=== PATIENT | female | born 1980 | race African-American/Black ===

== ENCOUNTER 2017-05-07 17:46 | Emergency (ER) | payer OTHER ==
[~2017-05-07] VITALS: Ht 170.2 cm; Wt 108.5 kg
[2017-05-07] MEDS ORDERED: CYCLOBENZAPRINE5 M1 PO (19:36)
== END 2017-05-07 19:41 ==
LOC: EDMED 17:46
DX: M54.2 Cervicalgia (principal); M54.5 Low back pain; M25.512 Pain in left shoulder; V49.40XA Driver injured in collision with unspecified motor vehicles in traffic accident, initial encounter; Y92.410 Unspecified street and highway as the place of occurrence of the external cause